=== PATIENT | male | born 2000 | race Two or more races ===

== ENCOUNTER 2021-05-18 14:21 | Emergency (ER) | payer MEDICAID, OTHER ==
[~2021-05-18] VITALS: Ht 182.9 cm; Wt 95.3 kg
[2021-05-18 15:09] VITALS: BP 144/73
[2021-05-18] MEDS ORDERED: CEPH500T PO (15:43)
== END 2021-05-18 15:54 | disposition home or self-care (01) ==
LOC: ER 14:21
DX: S31.109A Unspecified open wound of abdominal wall, unspecified quadrant without penetration into peritoneal cavity, initial encounter (principal); Z79.899 Other long term (current) drug therapy; X58.XXXA Exposure to other specified factors, initial encounter; Y93.89 Activity, other specified; Y92.89 Other specified places as the place of occurrence of the external cause; Y99.8 Other external cause status